=== PATIENT | male | born 1990 ===

== ENCOUNTER 2017-12-17 12:19 | Inpatient (IN) | payer SELFPAY ==
[2017-12-17 12:58] LABS: AUTOMATED NEUTROPHIL # 10.4 TH/MM3 (1.8-7.7); BASOPHIL % 0.4 % (0.0-2.0); EOSINOPHIL % 0.3 % (0.0-4.0); HEMO FLAGS DIFF FINAL; HEMOGLOBIN 13.5 GM/DL (13.0-17.0); LYMPH % 8.8 % (9.0-44.0); LYMPHOCYTE # 1.1 TH/MM3 (1.0-4.8); MEAN CELL VOLUME 96.6 FL (80.0-100.0); MEAN CORPUSCULAR HEMOGLOBIN 32.5 PG (27.0-34.0); MEAN CORPUSCULAR HGB CONC 33.6 % (32.0-36.0); MEAN PLATELET VOLUME 7.7 FL (7.0-11.0); MONO % 10.2 % (0.0-8.0); MONOCYTE # 1.3 TH/MM3 (0-0.9); NEUT % 80.3 % (16.0-70.0); PLATELET COUNT 222 TH/MM3 (150-450); RED BLOOD COUNT 4.14 MIL/MM3 (4.50-5.90); RED CELL DISTRIBUTION WIDTH 12.2 % (11.6-17.2)
[2017-12-17 13:12] LABS: APTT (PATIENT) 26.8 SEC (24.3-30.1); INTERNATIONAL NORMALIZED RATIO 1.1 RATIO; PROTHROMBIN TIME - PATIENT 11.4 SEC (9.8-11.6)
[2017-12-17 13:18] LABS: ALBUMIN 3.9 GM/DL (3.4-5.0); ALT (GPT) 84 U/L (12-78); ANION GAP 12 MEQ/L (5-15); AST (GOT) 213 U/L (15-37); BICARBONATE 22.6 MEQ/L (21.0-32.0); BLOOD UREA NITROGEN 18 MG/DL (7-18); CALCIUM 8.8 MG/DL (8.5-10.1); CHLORIDE 99 MEQ/L (98-107); CREATININE 1.17 MG/DL (0.60-1.30); GLOMERULAR FILTRATION RATE 74 ML/MIN (>89); GLUCOSE,RANDOM 77 MG/DL (74-106); MAGNESIUM 2.4 MG/DL (1.5-2.5); POTASSIUM 3.4 MEQ/L (3.5-5.1); SODIUM (NA) 134 MEQ/L (136-145)
[2017-12-17 13:21] LABS: LACTIC ACID SEPSIS PROTOCOL 1.1 mmol/L (0.4-2.0)
[2017-12-17 13:21] LABS: ALCOHOL LESS THAN 3 MG/DL (0-5)
[2017-12-17 13:23] LABS: SALICYLATES 2.8 MG/DL (2.8-20.0)
[2017-12-17 13:45] LABS: ACETAMINOPHEN LESS THAN 2.0 MCG/ML (10.0-30.0); ALKALINE PHOSPHATASE 96 U/L (45-117); CREATINE KINASE 8719 U/L (39-308); TOTAL BILIRUBIN ADULT 1.1 MG/DL (0.2-1.0); TOTAL PROTEIN 8.6 GM/DL (6.4-8.2); TROPONIN I LESS THAN 0.02 NG/ML (0.02-0.05)
[2017-12-17 13:57] LABS: CKMB 49.9 NG/ML (0.5-3.6); CKMB % 0.6 % (0.0-4.0)
[2017-12-17] MEDS: LORazepam 2 MG/ML VIAL (14:03)
[2017-12-17] MEDS: SODIUM CHLOR 0.9% 1000 ML INJ 1,000 ML IV ×3 (14:16→21:33)
[2017-12-17] MEDS: LORazepam 2 MG/ML VIAL IV PUSH ×2 (14:16→21:55)
[2017-12-17] MEDS ORDERED: ONDANSETRON HCL 4 MG/2 ML VIAL IVP (14:30)
[2017-12-17] MEDS ORDERED: NALOXONE HCL 0.4 MG/ML AMP IV PUSH (14:30)
[2017-12-17] MEDS ORDERED: SODIUM CHLORIDE 0.9% FLUSH 10 ML FLUSH IV FLUSH (14:30)
[2017-12-17 16:40] LABS: BARBITURATES, URINE NEG (NEG); BENZODIAZEPINE,URINE NEG (NEG); CANNABINOIDS, URINE POS (NEG)
[2017-12-17 16:41] LABS: AMPHETAMINE, URINE NEG (NEG); COCAINE, URINE POS (NEG)
[2017-12-17 17:23] LABS: BILIRUBIN, URINE NEG (NEG); BLOOD, URINE LARGE (NEG); COMMENT (UR) CULT NOT INDICATED; CULTURE IF INDICATED CULT NOT INDICATED; GLUCOSE,URINE NEG (NEG); KETONE, URINE 80 mg/dL (NEG); NITRITE,URINE NEG (NEG); PH, URINE 5.5 (5.0-8.5); SQUAMOUS EPITHELIAL CELL URINE 1 /hpf (0-5); URINE COLOR YELLOW (YELLW/STRAW); URINE LEUKOCYTE ESTERASE NEG (NEG)
[2017-12-17] MEDS: DEXTROSE 50% IN WATER 50 ML VIAL(D50) IV PUSH (18:56)
[2017-12-17] MEDS ORDERED: LORazepam 1 MG TAB PO (20:30)
[2017-12-17] MEDS ORDERED: FLUMAZENIL 0.5 MG/5 ML VIAL IV PUSH (20:30)
[2017-12-17] MEDS ORDERED: LORazepam 2 MG/ML VIAL IV PUSH ×2 (20:30)
[2017-12-17] MEDS: cloNIDine HCL 0.1 MG TAB PO (20:50)
[2017-12-17] MEDS: POTASSIUM CHLORIDE 10 MEQ CONTROLLED RELEASE TAB PO (21:33)
[2017-12-17] MEDS: SODIUM CHLORIDE 0.9% FLUSH 10 ML FLUSH IV FLUSH (21:33)
[2017-12-17] MEDS: levETIRAcetam 500 MG TAB PO (21:33)
[2017-12-17] MEDS: levETIRAcetam INJ 100 ML IV (21:35)
[2017-12-18] MEDS: LORazepam 2 MG/ML VIAL IV PUSH ×3 (03:10→12:25)
[2017-12-18] MEDS: SODIUM CHLOR 0.9% 1000 ML INJ 1,000 ML IV ×4 (05:44→23:10)
[2017-12-18] MEDS: levETIRAcetam 500 MG TAB PO ×2 (08:57→22:12)
[2017-12-18] MEDS: SODIUM CHLORIDE 0.9% FLUSH 10 ML FLUSH IV FLUSH ×2 (08:58→22:12)
[2017-12-18 09:30] LABS: AUTOMATED NEUTROPHIL # 3.8 TH/MM3 (1.8-7.7); BASOPHIL % 0.4 % (0.0-2.0); EOSINOPHIL # 0.1 TH/MM3 (0-0.4); EOSINOPHIL % 2.4 % (0.0-4.0); HEMATOCRIT 40.4 % (39.0-51.0); HEMO FLAGS DIFF FINAL; HEMOGLOBIN 13.6 GM/DL (13.0-17.0); LYMPH % 18.1 % (9.0-44.0); LYMPHOCYTE # 1.1 TH/MM3 (1.0-4.8); MEAN CELL VOLUME 97.2 FL (80.0-100.0); MEAN CORPUSCULAR HEMOGLOBIN 32.8 PG (27.0-34.0); MEAN CORPUSCULAR HGB CONC 33.8 % (32.0-36.0); MEAN PLATELET VOLUME 7.9 FL (7.0-11.0); MONO % 14.7 % (0.0-8.0); MONOCYTE # 0.9 TH/MM3 (0-0.9); NEUT % 64.4 % (16.0-70.0); PLATELET COUNT 219 TH/MM3 (150-450); RED BLOOD COUNT 4.16 MIL/MM3 (4.50-5.90); RED CELL DISTRIBUTION WIDTH 12.5 % (11.6-17.2); WHITE BLOOD COUNT 5.9 TH/MM3 (4.0-11.0)
[2017-12-18 10:21] LABS: ALBUMIN 3.1 GM/DL (3.4-5.0); ALKALINE PHOSPHATASE 84 U/L (45-117); ALT (GPT) 67 U/L (12-78); ANION GAP 8 MEQ/L (5-15); AST (GOT) 113 U/L (15-37); BICARBONATE 24.8 MEQ/L (21.0-32.0); BLOOD UREA NITROGEN 10 MG/DL (7-18); CALCIUM 8.4 MG/DL (8.5-10.1); CHLORIDE 104 MEQ/L (98-107); CHOLESTEROL 103 MG/DL (120-200); CHOLESTEROL/ HDL RATIO 2.39 RATIO; GLOMERULAR FILTRATION RATE 100 ML/MIN (>89); GLUCOSE,RANDOM 75 MG/DL (74-106); LDL CHOLESTEROL 50 MG/DL (0-99); POTASSIUM 3.6 MEQ/L (3.5-5.1); SODIUM (NA) 137 MEQ/L (136-145); TOTAL BILIRUBIN ADULT 0.5 MG/DL (0.2-1.0); TOTAL PROTEIN 6.5 GM/DL (6.4-8.2); TRIGLYCERIDES 50 MG/DL (42-150)
[2017-12-18 11:39] LABS: CREATINE KINASE 3806 U/L (39-308)
[2017-12-18] MEDS: cloNIDine HCL 0.1 MG TAB PO (11:56)
[2017-12-18 11:57] LABS: CKMB 18.6 NG/ML (0.5-3.6); CKMB % 0.5 % (0.0-4.0)
[2017-12-18] MEDS: HALOPERIDOL LACTATE 5 MG/ML AMP IM (18:41)
[2017-12-18] MEDS: QUEtiapine FUMARATE 25 MG TAB PO (22:12)
[2017-12-19] MEDS: SODIUM CHLOR 0.9% 1000 ML INJ 1,000 ML IV ×2 (05:09→19:10)
[2017-12-19 07:30] LABS: HEPATITIS B SURFACE ANTIGEN NONREACTIVE (NONREACTIVE)
[2017-12-19 07:40] LABS: HEPATITIS A AB IGM NONREACTIVE (NONREACTIVE); HEPATITIS B CORE AB IGM NONREACTIVE (NONREACTIVE); HEPATITIS C AB IgG NONREACTIVE (NONREACTIVE)
[2017-12-19] MEDS: LORazepam 2 MG TAB PO (09:00)
[2017-12-19] MEDS: levETIRAcetam 500 MG TAB PO ×2 (09:00→22:08)
[2017-12-19] MEDS: QUEtiapine FUMARATE 25 MG TAB PO ×2 (09:01→22:08)
[2017-12-19] MEDS: SODIUM CHLORIDE 0.9% FLUSH 10 ML FLUSH IV FLUSH (21:00)
[2017-12-20] MEDS: ACETAMINOPHEN 325 MG TAB PO (01:29)
[2017-12-20] MEDS: SODIUM CHLOR 0.9% 1000 ML INJ 1,000 ML IV ×5 (01:50→20:42)
[2017-12-20] MEDS: SODIUM CHLORIDE 0.9% FLUSH 10 ML FLUSH IV FLUSH ×2 (09:00→20:39)
[2017-12-20] MEDS: LORazepam 2 MG TAB PO (11:05)
[2017-12-20] MEDS: QUEtiapine FUMARATE 25 MG TAB PO ×2 (11:05→20:41)
[2017-12-20] MEDS: levETIRAcetam 500 MG TAB PO ×2 (11:06→20:41)
[2017-12-20 21:23] LABS: ALBUMIN 2.8 GM/DL (3.4-5.0); ANION GAP 7 MEQ/L (5-15); AST (GOT) 30 U/L (15-37); BICARBONATE 29.6 MEQ/L (21.0-32.0); BLOOD UREA NITROGEN 15 MG/DL (7-18); CALCIUM 8.8 MG/DL (8.5-10.1); CHLORIDE 106 MEQ/L (98-107); CREATININE 1.07 MG/DL (0.60-1.30); DIRECT BILIRUBIN ADULT 0.1 MG/DL (0.0-0.2); GLOMERULAR FILTRATION RATE 82 ML/MIN (>89); GLUCOSE,RANDOM 104 MG/DL (74-106); MAGNESIUM 2.1 MG/DL (1.5-2.5); POTASSIUM 3.6 MEQ/L (3.5-5.1); SODIUM (NA) 143 MEQ/L (136-145)
[2017-12-20 21:24] LABS: ALT (GPT) 46 U/L (12-78)
[2017-12-20 21:26] LABS: ALKALINE PHOSPHATASE 96 U/L (45-117); CREATINE KINASE 517 U/L (39-308); INDIRECT BILIRUBIN 0.1 MG/DL (0.0-0.8); TOTAL BILIRUBIN ADULT 0.2 MG/DL (0.2-1.0); TOTAL PROTEIN 6.4 GM/DL (6.4-8.2)
[2017-12-20 21:54] LABS: CKMB 1.5 NG/ML (0.5-3.6); CKMB % 0.3 % (0.0-4.0)
[2017-12-21] MEDS: levETIRAcetam 500 MG TAB PO (08:42)
[2017-12-21] MEDS: QUEtiapine FUMARATE 25 MG TAB PO (08:42)
[2017-12-21] MEDS: SODIUM CHLORIDE 0.9% FLUSH 10 ML FLUSH IV FLUSH (08:43)
[2017-12-21] MEDS: SODIUM CHLOR 0.9% 1000 ML INJ 1,000 ML IV ×2 (08:44→15:39)
[2017-12-21] MEDS: ACETAMINOPHEN 325 MG TAB PO (16:00)
== END 2017-12-21 19:10 | disposition home or self-care (01) | DRG 92 ==
LOC: NEPC 12:19 → NEDA 14:35 → N05B 19:23
DX: G92 Toxic encephalopathy (principal); M62.82 Rhabdomyolysis; E87.1 Hypo-osmolality and hyponatremia; E87.6 Hypokalemia; Z78.1 Physical restraint status; F19.10 Other psychoactive substance abuse, uncomplicated; G40.909 Epilepsy, unspecified, not intractable, without status epilepticus; I10 Essential (primary) hypertension; D72.829 Elevated white blood cell count, unspecified; R74.0 Nonspecific elevation of levels of transaminase and lactic acid dehydrogenase [LDH]
CPT/HCPCS: 70450; 71045; 76705; 80048; 80053; 80061; 80074; 80076; 80307; 81001; 82550; 82552; 83605; 83735; 84443; 84484; 85025; 85610; 85730; 93005; 96374; 97162-GP; 97167-GO; 97530-GP; 99285-25